=== PATIENT | female | born 1970 ===

== ENCOUNTER 2018-10-31 19:01 | Emergency (ER) | payer MEDICAID ==
[2018-10-31 19:25] VITALS: TEMP 98.4
[2018-10-31 21:14] LABS: BASO # 0.1 K/uL (0.0-0.2); EOS % 0.2 % (0.0-4.0); HEMOGLOBIN 12.5 g/dL (12.0-16.0); LYMPH # 2.1 K/uL (1.0-4.3); LYMPH % 23.1 % (20.0-40.0); MEAN CELL VOLUME 90.8 fl (81.0-99.0); MEAN CORPUSCULAR HEMOGLOBIN 30.6 pg (27.0-31.0); MEAN CORPUSCULAR HGB CONC 33.7 g/dL (33.0-37.0); MEAN PLATELET VOLUME 9.3 fl (7.2-11.7); MONO # 0.6 K/uL (0.0-0.8); MONO % 6.8 % (0.0-10.0); NEUT # 6.3 K/uL (1.8-7.0); NEUT % 68.9 % (50.0-75.0); RBC 4.09 Mil/uL (3.80-5.20); RED CELL DISTRIBUTION WIDTH 13.9 % (11.5-14.5); WHITE BLOOD COUNT 9.2 K/uL (4.8-10.8)
[2018-10-31 21:22] LABS: PROTHROMBIN TIME 11.7 Seconds (9.8-13.1)
[2018-10-31 21:24] LABS: PARTIAL THROMBOPLASTIN TIME 34.4 Seconds (25.6-37.1)
[2018-10-31 21:25] LABS: ALB/GLOB RATIO 1.5 (1.0-2.1)
[2018-10-31 21:30] LABS: ALBUMIN 4.4 g/dL (3.5-5.0); ALT/SGPT 30 U/L (9-52); AST/SGOT 27 U/L (14-36); BLOOD UREA NITROGEN 11 mg/dl (7-17); CALCIUM 9.5 mg/dL (8.4-10.2); GFR NON-AFRICAN AMERICAN > 60
--- NOTE | 2018-10-31 22:01 | ED PDOC ---
HPI: Female Pain Time Seen by Provider: 10/31/18 19:40 Chief Complaint (Nursing): Abdominal Pain Chief Complaint (Provider): Inguinal Swelling History Per: Patient History/Exam Limitations: no limitations Onset/Duration Of Symptoms: Hrs (x 24) Current Symptoms Are (Timing): Still Present Severity: Moderate Quality Of Discomfort: "Pain" Alleviating Factors: None Additional Complaint(s): 48 year old female with history of HTN, anxiety and depression presents to the ED for evaluation of left inguinal swelling for the last 24 hours. Patient states that yesterday she noticed swelling to the left inguinal area that she thought was possibly an ingrown hair. She was seen at [facility]. There she had labs and a CT performed that were unremarkable and was ultimately discharged with Naprosyn. Patient reports that swelling worsened overnight and is now accompanied by bruising. She ended her period four days ago and continues to experience vaginal spotting. The area is painful to the touch and pain is exacerbated by movement. Denies trauma and urinary symptoms. PMD: Dr. Tish Hernandez Abnormal Vaginal Bleeding: Yes Past Medical History Reviewed: Historical Data (x 3), Nursing Documentation, Vital Signs Vital Signs: Last Vital Signs Temp 98.4 F 10/31/18 19:23 Pulse 103 H 10/31/18 19:23 Resp 20 10/31/18 19:23 BP 150/93 H 10/31/18 19:23 Pulse Ox 97 10/31/18 19:23 - Medical History PMH: Asthma, Gall Bladder Disease, HTN Denies: Chronic Kidney Disease - Surgical History Surgical History: Cholecystectomy, (x 3) - Family History Family History: States: Unknown Family Hx - Social History Current smoker - smoking cessation education provided: Yes (1/2 to 1 pack a day) - Home Medications Home Medications: Ambulatory Orders Medication Instructions Recorded Losartan 1 tab PO DAILY 10/30/18 hydroCHLOROthiazide 1 tab PO DAILY 10/30/18 Lidocaine 5% [Lidoderm] 1 ea TD QAM #5 patch 10/31/18 Naproxen 375 mg PO BID PRN #20 tablet 10/31/18 - Allergies Allergies/Adverse Reactions: Allergies Allergy/AdvReac Type Severity Reaction Status Date / Time acetaminophen [From Percocet] Allergy RASH Verified 10/31/18 19:19 diphenhydramine Allergy RASH Verified 03/22/19 19:19 [From Benadryl] metronidazole [From Flagyl] Allergy RASH Verified 10/31/18 19:19 morphine Allergy RASH Verified 10/31/18 19:19 oxycodone [From Percocet] Allergy RASH Verified 10/31/18 19:19 Review of Systems ROS Statement: Except As Marked, All Systems Reviewed And Found Negative Genitourinary Female: Positive for: Other (swelling and bruising to inguinal area) Physical Exam - Reviewed Nursing Documentation Reviewed: Yes Vital Signs Reviewed: Yes - Physical Exam Appears: Positive for: No Acute Distress Head Exam: Positive for: ATRAUMATIC, NORMAL INSPECTION, NORMOCEPHALIC Skin: Positive for: Normal Color, Warm, Dry. Negative for: Rash Eye Exam: Positive for: EOMI, Normal appearance, PERRL Neck: Positive for: Normal, Painless ROM, Supple Cardiovascular/Chest: Positive for: Regular Rate, Rhythm. Negative for: Murmur Respiratory: Positive for: Normal Breath Sounds. Negative for: Respiratory Dis tress Gastrointestinal/Abdominal: Positive for: Normal Exam, Soft, Other (5 x 2 cm large, non-pulsatile, tender ecchymotic hematoma to left inguinal surface; no induration or warmth) Back: Positive for: Normal Inspection. Negative for: L CVA Tenderness, R CVA Tenderness Extremity: Positive for: Normal ROM. Negative for: Deformity Neurological/Psych: Positive for: Awake, Alert, Normal Tone, Oriented. Negative for: Motor/Sensory Deficits - Laboratory Results Result Diagrams: 10/31/18 21:11 10/31/18 21:11 Lab Results: PT 11.7 Seconds (9.8-13.1) 10/31/18 21:11 INR 1.0 10/31/18 21:11 APTT 34.4 Seconds (25.6-37.1) 10/31/18 21:11 Total Bilirubin 0.2 mg/dl (0.2-1.3) 10/31/18 21:11 AST 27 U/L (14-36) 10/31/18 21:11 ALT 30 U/L (9-52) 10/31/18 21:11 Alkaline Phosphatase 45 U/L (38-126) 10/31/18 21:11 Total Protein 7.2 G/DL (6.3-8.2) 10/31/18 21:11 Albumin 4.4 g/dL (3.5-5.0) 10/31/18 21:11 Globulin 2.9 gm/dL (2.2-3.9) 10/31/18 21:11 Albumin/Globulin Ratio 1.5 (1.0-2.1) 10/31/18 21:11 - ECG O2 Sat by Pulse Oximetry: 97 (RA) Pulse Ox Interpretation: Normal Medical Decision Making Medical Decision Makin:45 Impression: 48 year old female with non-traumatic hematoma to left inguinal region Initial Plan: --CBC --CMP --PTT --PT --Urine dip --Urine preg --UA --Toradol 30 mg IM --Transvag US --US soft tissue 23:03 US Soft tissue FINDINGS: No acute findings. No suspicious hypoechoic or hyperechoic foci are identified. IMPRESSION: 1. No acute findings. 2. No suspicious cystic or solid lesions detected. 23:04 US Transvag FINDINGS: ENDOMETRIUM: Normal thickness measuring 8.5 mm in AP dimension. UTERUS/CERVIX: The uterus is elongated and slightly deviated to the right in position. The uterus measured approximately 12.6 x 3.8 x 4.4 cm in longitudinal, AP and transverse dimensions respectively. No uterine fibroid or other mass evident. RIGHT OVARY: There appears to be normal Doppler flow in transabdominal images. No abnormal mass. Incidental note is made of a 2.4 x 1.7 x 2.0 cm simple cyst. LEFT OVARY: There appears to be normal Doppler flow in transabdominal images. No abnormal mass. FREE FLUID: No free fluid. IMPRESSION: 1. Elongation of the uterus with deviation to the right. 2. 2.4 x 1.7 cm simple cyst in the right ovary. 3. Otherwise, unremarkable transabdominal pelvic ultrasound. 23:20 Labs reviewed no clinically significant abnormalities. Patient reassured as to benign progression of hematoma and contusion. Patient advised to apply ice to the area and to sleep on her right side. Diagnosis is abdominal hematoma, contusion. Scribe Attestation: Documented by Audrey Mcnally and Luís Sun, acting as a scribe Juancho Hooper MD Provider Scribe Attestation: All medical record entries made by the Scribe were at my direction and personally dictated by me. I have reviewed the chart and agree that the record accurately reflects my personal performance of the history, physical exam, medical decision making, and the department course for this patient. I have also personally directed, reviewed, and agree with the discharge instructions and disposition Disposition - Clinical Impression Clinical Impression: Hematoma and contusion, Ovarian cyst, Hypokalemia - Disposition Disposition: Routine/Home Disposition Time: 23:20 Condition: STABLE Additional Instructions: FREDY THAKUR, thank you for letting us take care of you today. Your provider was Maykel Hooper MD and you were treated for LOWER ABD PAIN. The emergency medical care you received today was directed at your acute symptoms. If you were prescribed any medication, please fill it and take as directed. It may take several days for your symptoms to resolve. Return to the Emergency Department if your symptoms worsen, do not improve, or if you have any other problems. Please contact your doctor or call one of the physicians/clinics you have been referred to that are listed on the Patient Visit Information form that is included in your discharge packet. Bring any paperwork you were given at d ischarge with you along with any medications you are taking to your follow up visit. Our treatment cannot replace ongoing medical care by a primary care provider outside of the emergency department. Thank you for allowing the [facility] team to be part of your care today. If you had an X-Ray or CT scan: A Radiologist will review the ED reading if any change in treatment is needed we will contact you. If you had a blood, urine, or wound culture: It will take several days for the results, if any change in treatment is needed we will contact you. If you had an STI test: It will take 48 hours for the results. Please call after 1 week if you have not heard back. Prescriptions: Lidocaine 5% [Lidoderm] 1 ea TD QAM #5 patch Instructions: Ovarian Cysts, Contusion (DC) Forms: [employer] ([place])
[2018-10-31] MEDS ORDERED: Lidocaine 5% Patch TD STA (23:30)
[2018-10-31] MEDS ORDERED: Potassium Chloride 20 mEq ER Tab PO ONE (23:31)
[2018-10-31] MEDS ORDERED: Lidocaine 5% Patch TD ONE (23:33)
[2018-10-31 23:44] VITALS: BP 139/82; PULSE 83; RESP 15; O2SAT 100
--- NOTE | 2018-11-01 13:49 | US ---
Date of service: 10/31/2018 HISTORY: Vaginal bleeding COMPARISON: None available. TECHNIQUE: Transabdominal sonographic evaluation of the pelvis performed FINDINGS: UTERUS: Measures 12.6 x3 0.8 x 4.4 cm. Anteverted. Normal in size and appearance. The fundus is somewhat inhomogeneous; the possibility of underlying fibroids not completely excluded ENDOMETRIUM: Measures 9.0 mm in diameter. Unremarkable. CERVIX: No cervical abnormality identified. RIGHT OVARY: Measures 3.2 x 2.2 x 2.7. cm. No solid mass. Normal flow. There is a simple appearing cyst right ovary measuring 2.4 x 1.7 x 2.0 cm LEFT OVARY: Measures 1.8 x 0.8 x 1.7 cm. No solid mass. Normal flow. FREE FLUID: No significant free fluid noted. OTHER FINDINGS: None. IMPRESSION: Small right ovarian cyst as described. Uterus is somewhat inhomogeneous; the possibility of underlying fibroid not excluded.
--- NOTE | 2018-11-01 13:56 | US ---
Date of service: 10/31/2018 PROCEDURE: Left inguinal-suprapubic soft tissue ultrasound. HISTORY: Left groin hematoma COMPARISON: No prior study available for comparison TECHNIQUE: Transabdominal sonographic evaluation soft tissues left inguinal and left suprapubic region performed. FINDINGS: Current study reveals no evidence of discrete mass or fluid collection within the subcutaneous tissues. IMPRESSION: No discrete mass or fluid collections seen within the subcutaneous tissues in the left inguinal/left suprapubic region..
== END 2018-10-31 23:44 | disposition home or self-care (01) ==
LOC: H.ER 19:01 → EDBD 19:01 → H.ER 23:44
DX: M79.81 Nontraumatic hematoma of soft tissue (principal); E87.6 Hypokalemia; I10 Essential (primary) hypertension; Z88.1 Allergy status to other antibiotic agents; Z88.5 Allergy status to narcotic agent; Z88.8 Allergy status to other drugs, medicaments and biological substances; N83.201 Unspecified ovarian cyst, right side
CPT/HCPCS: 76856; 76882; 80053; 81025; 85025; 85610; 85730; 96374; 99284; J1885